=== PATIENT | female | born 1965 | race Caucasian/White ===

== ENCOUNTER 2017-12-29 07:44 | Outpatient (CLI) | payer BC ==
--- NOTE | 2017-12-29 09:56 | RAD ---
UPPER GI SERIES: HISTORY: Gastroesophageal reflux disease. A suspension of barium sulfate as well as effervescent granules were given to the patient. Spot and overhead images obtained. RADIATION DOSIMETRY: 1.3 minutes of fluoroscopy and DAP of 34.1 uGycm2. FINDINGS: The esophagus was unremarkable with no evidence of definite esophageal masses or lesions. The contra st passes into the stomach without difficulty. Some gastroesophageal reflux is seen during the cours e of the exam. No definite evidence of esophageal strictures seen. He stomach is unremarkable. The duodenum is unremarkable. No evidence o duodenal ulcer is seen. IMPRESSION: Gastroesophageal reflux noted all the way to the midthoracic esophagus. No definite evidence of esop hageal masses or lesions seen. POS: [facility]
== END 2017-12-29 07:45 | disposition home or self-care (01) ==
LOC: RAD 07:44
PROVIDERS: ATTEND Internal Medicine Gastroenterology
DX: K21.9 Gastro-esophageal reflux disease without esophagitis (principal)
CPT/HCPCS: 74247

== ENCOUNTER 2018-02-14 10:36 | Outpatient (CLI) | payer BC ==
--- NOTE | 2018-02-14 13:16 | RAD ---
CERVICAL SPINE AP AND LATERAL AND STANDARD: HISTORY: Neck pain. COMPARISON: None. FINDINGS: Open mouth odontoid view is normal. No acute fracture or malalignment. There is degenerative disk s pace disease at C5-6 and C6-7. Mild straightening of the cervical spine. IMPRESSION: Mild spondylosis. POS: [facility]
== END 2018-02-14 10:37 | disposition home or self-care (01) ==
LOC: BICRAD 10:36
PROVIDERS: ATTEND Internal Medicine
DX: M54.2 Cervicalgia (principal); M47.812 Spondylosis without myelopathy or radiculopathy, cervical region; M79.602 Pain in left arm; M19.90 Unspecified osteoarthritis, unspecified site
CPT/HCPCS: 72040

== ENCOUNTER 2018-09-08 13:25 | Outpatient (CLI) | payer BC ==
--- NOTE | 2018-09-08 13:49 | RAD ---
XR Shoulder Lt 3 View STANDARD: 09/08/2018 12:00 AM CLINICAL INDICATION: Left shoulder pain COMPARISON: None. FINDINGS: Fracture:No fracture. Arthropathy:None of significance. Incidental findings:Small sclerotic foci of the left humeral head may relate to bone islands Elevation of left hemidiaphragm, partially visualized. IMPRESSION: 1. No acute osseous abnormality.
--- NOTE | 2018-09-08 13:50 | RAD ---
XR Cerv Sp Ap Lat STANDARD: 09/08/2018 12:00 AM CLINICAL INDICATION: Neck pain COMPARISON: 02/04/2018 FINDINGS: Fracture:No fracture. Arthropathy:Mild multilevel degenerative change is present. There is mild retrolisthesis of C5 on C6. Straightening of normal cervical curvature. Lateral masses of C1 are appropriately aligned. Incidental findings:None of significance. IMPRESSION: 1. No acute osseous abnormality. 2. Mild multilevel degenerative change.
== END 2018-09-08 13:26 | disposition home or self-care (01) ==
LOC: BICRAD 13:25
PROVIDERS: ATTEND Internal Medicine
DX: M25.519 Pain in unspecified shoulder (principal); M54.2 Cervicalgia; M19.90 Unspecified osteoarthritis, unspecified site; M47.812 Spondylosis without myelopathy or radiculopathy, cervical region
CPT/HCPCS: 72040

== ENCOUNTER 2018-11-02 08:49 | Outpatient (CLI) | payer BC ==
[2018-11-02 09:51] LABS: Mean Corpuscular HGB CONC 33.5 g/dL (32.0-36.0); Mean Corpuscular Volume 86.5 fL (78.0-98.0); Mean Platelet Volume 8.8 fL (7.4-10.4); Platelet Count 172 thou/uL (130-400); RBC Distribution Width 12.7 % (11.5-14.5); Red Blood Cell (RBC) Count 5.16 mill/uL (4.20-5.40); White Blood Cell (WBC) Count 6.9 thou/uL (4.8-10.8)
[2018-11-02 10:17] LABS: Anion Gap 14 mmol/L (10-20); BUN (Urea Nitrogen) 15 mg/dL (9.8-20.1); Calc. Creatinine Clearance 0 mL/min (70-130); Calcium 10.3 mg/dL (7.8-10.44); Carbon Dioxide 26 mmol/L (22-29); Chloride 104 mmol/L (98-107); Estimated GFR-MDRD 82; Glucose 191 mg/dL (70-105); Potassium 4.6 mmol/L (3.5-5.1); Sodium 139 mmol/L (136-145)
== END 2018-11-02 08:50 | disposition home or self-care (01) ==
LOC: LABBT 08:49
PROVIDERS: ATTEND Neurological Surgery
DX: Z01.818 Encounter for other preprocedural examination (principal); M54.12 Radiculopathy, cervical region
CPT/HCPCS: 80048; 85027; 93005; 93010

== ENCOUNTER 2018-11-07 06:11 | Day surgery (SDC) | payer BC ==
[2018-11-02 09:06] VITALS: BMI 29.5
[2018-11-07] MEDS ORDERED: Sodium Chloride 0.9% 10 ML ONE (06:25)
[2018-11-07] MEDS ORDERED: Clindamycin/D5W 900 mg/50 ml Premix Bag ONE (07:07)
[2018-11-07] MEDS ORDERED: Levofloxacin 500 mg/D5W 100 ml Premix Bag ONE (07:07)
[2018-11-07] MEDS ORDERED: Fentanyl 100 MCG/2 ML VIAL ONE ×3 (07:22→10:50)
--- NOTE | 2018-11-07 10:37 | OP ---
DATE OF PROCEDURE: 11/07/2018 MACHINERY DISMANTLER: Ladarius Rodriguez PA-C PROCEDURES PERFORMED: Anterior cervical diskectomy, C5-C6, interbody arthrodesis, intervertebral biomechanical device, local morselized autograft, demineralized bone matrix, anterior titanium instrumentation, C5-C6. DESCRIPTION OF PROCEDURE: The patient was brought to the operating room and intubated. She was positioned supine with the head in modest extension on a gel-filled donut. An incision was made in the right precervical area and dissected medial to the sternocleidomastoid muscle, identified the anterior cervical spinal, and the level was confirmed by x-ray. We placed distraction across the disk spaces, and then completely decompressed the intervertebral disk to the level of neural foramina bilaterally. After complete decompression had been secured, the bony endplates were decorticated for purpose of arthrodesis and appropriate-sized intervertebral biomechanical PEEK device was brought into the field. It was filled with demineralized bone matrix and local morselized autograft, and tapped in place securely at C5-C6. Next, an anterior plate was brought into the field and secured to C5 and C6 using two 14-mm screws at each level. The wound was then extensively irrigated and MAC hemostasis was secured and the wound was closed in anatomic layers. Job ID: [id number]
[2018-11-07] MEDS ORDERED: tiZANidine HCl 4 MG TAB ONE (10:49)
[2018-11-07] MEDS ORDERED: HYDROmorphone 2 MG/ML VIAL ONE (11:26)
[2018-11-07] MEDS ORDERED: Ondansetron PF 4 MG/2 ML Vial ONE (13:21)
[2018-11-07] MEDS ORDERED: Promethazine HCl 25 MG/ML VIAL ONE (13:39)
[2018-11-07] MEDS ORDERED: HYDROcodone/Acetaminophen 5/325 mg Tablet ONE (15:30)
== END 2018-11-07 16:20 | disposition home or self-care (01) ==
LOC: SDC 06:11
PROVIDERS: ATTEND Neurological Surgery
PROC: 0RG10A0 Fusion of Cervical Vertebral Joint with Interbody Fusion Device, Anterior Approach, Anterior Column, Open Approach (ICD-10-PCS; principal; 2018-11-07)
PROC: 0RG1071 Fusion of Cervical Vertebral Joint with Autologous Tissue Substitute, Posterior Approach, Posterior Column, Open Approach (ICD-10-PCS; principal; 2018-11-07)
PROC: 0RT30ZZ Resection of Cervical Vertebral Disc, Open Approach (ICD-10-PCS; principal; 2018-11-07)
DX: M54.12 Radiculopathy, cervical region (principal); E11.9 Type 2 diabetes mellitus without complications; E78.5 Hyperlipidemia, unspecified; Z88.8 Allergy status to other drugs, medicaments and biological substances
CPT/HCPCS: 76000; C1713; C1776; J0131; J1170; J1956; J2405; J2550; J3010; J3490

== ENCOUNTER 2018-11-23 10:19 | Outpatient (CLI) | payer BC ==
--- NOTE | 2018-11-23 13:26 | RAD ---
FOUR VIEWS OF THE CERVICAL SPINE: 11/23/18 COMPARISON: 09/08/18 HISTORY: Cervical radiculopathy, re-evaluate cervical spine following surgery. FINDINGS: Since the prior examination, there has been anterior discectomy and fusion at C5-6. No evidence for h ardware failure. No anterolisthesis or retrolisthesis. Mild soft tissue prominence of prevertebral so ft tissues noted anterior to the fusion plate. Cervicothoracic junction appears intact. Open mouth od ontoid view demonstrates a normal appearing dens and C1-2 articulation. Mild multilevel facet and unc overtebral osteophyte formation noted involving the lower cervical spine on the left. IMPRESSION: Postoperative changes associated with interval anterior discectomy and fusion at C5-6. POS: [facility]
== END 2018-11-23 10:20 | disposition home or self-care (01) ==
LOC: TBSIIMAG 10:19
PROVIDERS: ATTEND Neurological Surgery
DX: M54.12 Radiculopathy, cervical region (principal); Z98.1 Arthrodesis status
CPT/HCPCS: 72040

== ENCOUNTER 2019-01-11 14:56 | Outpatient (CLI) | payer BC ==
--- NOTE | 2019-01-11 16:02 | RAD ---
CERVICAL SPINE SERIES THREE VIEWS: 01/11/19 HISTORY: Follow-up surgery. COMPARISON: 11/23/18 study. Patient has undergone an anterior cervical fusion with placement of a plate and screws at the C5-6 le kathy. Markers of a disc implant are within the confines of the disc level. IMPRESSION: Stable postop change. POS: [facility]
== END 2019-01-11 14:57 | disposition home or self-care (01) ==
LOC: TBSIIMAG 14:56
PROVIDERS: ATTEND Neurological Surgery
DX: M48.02 Spinal stenosis, cervical region (principal); Z98.890 Other specified postprocedural states
CPT/HCPCS: 72040

== ENCOUNTER 2019-03-23 10:13 | Outpatient (CLI) | payer BC ==
--- NOTE | 2019-03-23 11:58 | ULT ---
RENAL ULTRASOUND: HISTORY: Family history of renal polycystic kidney disease. TECHNIQUE: Real-time imaging of the right and left kidneys was performed. FINDINGS: The right kidney measures 12.2, the left kidney 11.6 cm in size. No signs of cyst, mass or obstructio n. There are extrarenal pelves identified bilaterally. The bladder region is unremarkable. IMPRESSION: Unremarkable renal ultrasound. POS: [facility]
== END 2019-03-23 10:14 | disposition home or self-care (01) ==
LOC: BICULT 10:13
PROVIDERS: ATTEND Physician Assistant
DX: E11.9 Type 2 diabetes mellitus without complications (principal); Z82.71 Family history of polycystic kidney
CPT/HCPCS: 36415; 76770; 80061

== ENCOUNTER 2021-12-30 19:30 | Outpatient (CLI) | payer BC | END 2021-12-30 19:31 | disposition home or self-care (01) | LOC: SLEEPLAB 19:30 | PROVIDERS: ATTEND Otolaryngology Otolaryngic Allergy | DX: G47.33 Obstructive sleep apnea (adult) (pediatric) (principal) | CPT/HCPCS: 95810 ==

== ENCOUNTER 2022-01-19 17:30 | Outpatient (CLI) | payer BC | END 2022-01-19 17:31 | disposition home or self-care (01) | LOC: SLEEPLAB 17:30 | PROVIDERS: ATTEND Otolaryngology Otolaryngic Allergy | DX: G47.33 Obstructive sleep apnea (adult) (pediatric) (principal); R06.83 Snoring; G47.00 Insomnia, unspecified | CPT/HCPCS: 95800 ==

== ENCOUNTER 2023-05-27 16:00 | Outpatient (CLI) | payer BC | END 2023-05-27 16:01 | disposition home or self-care (01) | LOC: SLEEPLAB 16:00 | PROVIDERS: ATTEND Otolaryngology Otolaryngic Allergy | DX: G47.33 Obstructive sleep apnea (adult) (pediatric) (principal); R06.83 Snoring; G47.10 Hypersomnia, unspecified | CPT/HCPCS: 95977 ==